=== PATIENT | male | born 1965 | race Caucasian/White ===

== ENCOUNTER 2016-09-08 10:14 | Emergency (ER) | payer SELFPAY ==
[2016-09-08 10:35] VITALS: BMI 25.1
[2016-09-08] MEDS ORDERED: ACETAMINOPHEN 325 MG/TAB TABLET PO ONE (10:36)
[2016-09-08 11:07] LABS: MPV 8.5 fL (7.4-10.4)
[2016-09-08 11:19] LABS: BLOOD UREA NITROGEN 11 MG/DL (9-20); CALCIUM 9.2 MG/DL (8.4-10.2); CALCULATED OSMOLALITY 252 MOs/Kg (270-290); CHLORIDE 92 mEq/L (98-107); GLUCOSE 142 MG/DL (70-99); SODIUM LEVEL 130 mEq/L (137-146); TOTAL PROTEIN 8.1 G/DL (6.3-8.2)
--- NOTE | 2016-09-08 11:22 | DIRPT ---
CLINICAL DATA: Cough, fever, congestion for 4 days EXAM: CHEST 2 VIEW COMPARISON: None. FINDINGS: There is consolidation in the right upper lobe compatible with pneumonia. Left lung is clear. Heart is normal size. No effusions or acute bony abnormality. IMPRESSION: Right upper lobe pneumonia. Followup PA and lateral chest X-ray is recommended in 3-4 weeks following trial of antibiotic therapy to ensure resolution and exclude underlying malignancy. Electronically Signed By: Zoltan Tony M.D. On: 09/08/2016 11:19
[2016-09-08 11:43] LABS: SEG NEUTROPHIL 81 % (45-76)
[2016-09-08] MEDS ORDERED: NS 2,000 ML IV ONE (11:47)
[2016-09-08] MEDS ORDERED: AZITHROMYCIN 500 MG in D5W 250 ML IV ONE (11:47)
[2016-09-08] MEDS ORDERED: CEFTRIAXONE 2 GM in D5W 100 ML IV ONE (11:47)
[2016-09-08 11:57] LABS: ALLEN'S TEST PASS; BEb 1.7 (+/- 2); TCO2 24.8 MMOL/L (23-27)
[2016-09-08 11:58] LABS: ABG Draw Site Left Radial
--- NOTE | 2016-09-08 12:00 | EDPRACDOC ---
- General Information Chief Complaint: Flu-Like Symptoms Stated Complaint: FLU LIKE SYMPTOMS Time Seen by Provider: 09/08/16 11:43 Mode Of Arrival: Car Home Medications: Home Medications Cephalexin Monohydrate [Keflex] 500 mg PO Q6H #28 tab 05/09/13 Hydrocodone Bit/Acetaminophen [Lortab 5-500 Tablet] 1 tab PO Q4-6H PRN #20 tab 05/09/13 No Home Medications 0 NA DIR 05/09/13 Cephalexin Monohydrate [Keflex] 500 mg PO Q6H #40 cap 01/23/15 Hydrocodone Bit/Acetaminophen [Hydrocodon-Acetaminophen 5-325] 1 tab PO Q6H PRN #14 tab 01/23/15 Azithromycin [Zithromax] 0 mg PO DAILY #6 tablet 09/08/16 Guaifenesin-Codeine [Robitussin AC] 10 ml PO Q6-8H 5 Days 09/08/16 Allergies/Adverse Reactions: Allergies Allergy/AdvReac Type Severity Reaction Status Date / Time No Known Allergies Allergy Verified 01/23/15 00:00 - History of Present Illness Symptoms Started: 5 DAYS Symptoms: Reports: Cough Recent Medications: Reports: None Relevant History Of: Reports: None Shortness of Breath: None Cough Frequency: Intermittent Cough Description: Reports: Productive Rhinorrhea: Reports: Brown, Green Associated Signs and Symptoms: Reports: Fever. Denies: Headache ED Past Medical History - History Reviewed Yes Nurses notes reviewed and agree except as marked - Social Medical History Smoking Status: Heavy tobacco smoker (5 or more cigarettes/day or daily pipe/ cigar) EDM Review of Systems - Review of Systems ROS Negative Except as Marked: Yes All systems reviewed and were negative except as marked - Physical Exam Constitutional: Alert (Awake), No apparent distress Oriented to: Time, Person, Place Last recorded Vital Signs: Last Vital Signs Temp 98.8 F 09/08/16 11:46 Pulse 116 09/08/16 10:33 Resp 26 H 09/08/16 10:33 BP 132/72 09/08/16 10:33 Pulse Ox 95 09/08/16 10:33 Oxygen Pulse Oxygen Saturation 95 O2 Device Room Air Oxygen Flow Rate Fraction of Inspired Oxygen ( FIO2) - HEENT Head: Normal ( normocephalic) Eye Exam: Normal (PERRL, EOMI, Sclera white) Oropharynx: Normal (Pharynx:Moist without exudate,Gums-no swelling) ENT EAC: Normal TMJ: Normal Nose: No Symptoms Reported (septum midline) Neck: Normal (FROM, trachea at midline) - Respiratory/Cardiovascular Respiratory: Normal - CTA (BBS clear to auscultation without adventitious sounds ) Cardiovascular: Tachycardia - GI Auscultation: Normal (NABS) Palpation: Normal (Soft,No rebound or guarding, non distended) Tenderness: Non tender Davsi's Sign: Negative - Musculoskeletal Back: Normal (Non-Tender) Extremities: Normal (Normal tone, Pulses 2+ No cyanosis or edema, FROM) - Integumentary Skin: Normal, Warm, Dry Lymphatics: Normal (no adenopathy) - Neurologic Memory Impaired: Normal Motor Function: Normal (Normal tone, Pulses 2+ No cyanosis or edema, FROM) Cranial Nerve: Normal (CN II-X11 intact sensation, strength 5/5) Cerebellar: Normal Mood Description: Normal Perception: Normal - Results 09/08/16 10:45 09/08/16 10:45 WBC 29.7 xk/uL (3.8-10.8) H 09/08/16 10:45 RBC 5.26 xM/uL (4.70-6.10) 09/08/16 10:45 Hgb 15.4 g/dL (14.0-18.0) 09/08/16 10:45 Hct 45.6 % (42-52) 09/08/16 10:45 MCV 87 fL (80-94) 09/08/16 10:45 MCH 29.3 pg (27-32) 09/08/16 10:45 MCHC 33.8 g/dl (33-36) 09/08/16 10:45 RDW 14.1 % (11.5-14.5) 09/08/16 10:45 Plt Count 253 xk/uL (130-400) 09/08/16 10:45 MPV 8.5 fL (7.4-10.4) 09/08/16 10:45 Neut % (Auto) Cancelled 09/08/16 10:45 Lymph % (Auto) Cancelled 09/08/16 10:45 [place] % (Auto) Cancelled 09/08/16 10:45 Eos % (Auto) Cancelled 09/08/16 10:45 Baso % (Auto) Cancelled 09/08/16 10:45 Absolute Neuts (auto) Cancelled 09/08/16 10:45 Absolute Lymphs (auto) Cancelled 09/08/16 10:45 Seg Neuts % (Manual) 81 % (45-76) H 09/08/16 10:45 Band Neutrophils % 12 % (0-5) H 09/08/16 10:45 Lymphocytes % (Manual) 3 % (17-44) L 09/08/16 10:45 Monocytes % (Manual) 4 % (0-10) 09/08/16 10:45 Absolute Neutrophils 27.62 xk/uL (1.7-8.2) H 09/08/16 10:45 Absolute Lymphocytes 0.89 xk/uL (0.65-4.75) 09/08/16 10:45 Vacuolated Neuts Few 09/08/16 10:45 Dohle Bodies Occ 09/08/16 10:45 Platelet Estimate Norm (NORMAL) Occ giant platelet (NORMAL) Large plts present (NORMAL) 09/08/16 10:45 Platelet Estimate Norm (NORMAL) Occ giant platelet (NORMAL) Large plts present (NORMAL) 09/08/16 10:45 Platelet Estimate Norm (NORMAL) Occ giant platelet (NORMAL) Large plts present (NORMAL) 09/08/16 10:45 RBC Morphology Norm 09/08/16 10:45 Puncture Site Left radial 09/08/16 11:52 pH 7.510 pH UNITS (7.35-7.45) H 09/08/16 11:52 pCO2 30.0 mmHg (35-45) L 09/08/16 11:52 pO2 81.0 mmHg (80-100) 09/08/16 11:52 HCO3 23.9 MMOL/L (22-26) 09/08/16 11:52 Total CO2 24.8 MMOL/L (23-27) 09/08/16 11:52 Base Excess 1.7 (+/- 2) 09/08/16 11:52 FiO2 % 21% 09/08/16 11:52 Specimen Drawn By Roude 09/08/16 11:52 Sodium 130 mEq/L (137-146) L 09/08/16 10:45 Potassium 3.6 mEq/L (3.5-5.1) 09/08/16 10:45 Chloride 92 mEq/L (98-107) L 09/08/16 10:45 Carbon Dioxide 26 mMOL/L (22-33) 09/08/16 10:45 Anion Gap 16 mEq/L (8-16) 09/08/16 10:45 BUN 11 MG/DL (9-20) 09/08/16 10:45 Creatinine 1.00 MG/DL (0.66-1.25) 09/08/16 10:45 Estimated GFR (MDRD) > 60 mL/min (>=60) 09/08/16 10:45 Glucose 142 MG/DL (70-99) H 09/08/16 10:45 Calculated Osmolality 252 MOs/Kg (270-290) L 09/08/16 10:45 Lactic Acid 2.4 mEq/L (0.7-2.1) H 09/08/16 10:45 Calcium 9.2 MG/DL (8.4-10.2) 09/08/16 10:45 Total Bilirubin 3.3 MG/DL (0.2-1.3) H 09/08/16 10:45 AST 44 IU/L (17-59) 09/08/16 10:45 ALT 33 IU/L (21-72) 09/08/16 10:45 Alkaline Phosphatase 167 IU/L (38-126) H 09/08/16 10:45 Total Protein 8.1 G/DL (6.3-8.2) 09/08/16 10:45 Albumin 4.1 G/DL (3.5-5.0) 09/08/16 10:45 Lab Results 09/08/16 09/08/16 09/08/16 11:52 10:45 10:45 WBC 29.7 H RBC 5.26 Hgb 15.4 Hct 45.6 MCV 87 MCH 29.3 MCHC 33.8 RDW 14.1 Plt Count 253 MPV 8.5 Neut % (Auto) Cancelled Lymph % (Auto) Cancelled [place] % (Auto) Cancelled Eos % (Auto) Cancelled Baso % (Auto) Cancelled Absolute Neuts (auto) Cancelled Absolute Lymphs (auto) Cancelled Seg Neuts % (Manual) 81 H Band Neutrophils % 12 H Lymphocytes % (Manual) 3 L Monocytes % (Manual) 4 Absolute Neutrophils 27.62 H Absolute Lymphocytes 0.89 Vacuolated Neuts Few Dohle Bodies Occ Platelet Estimate Large plts present RBC Morphology Norm Puncture Site Left radial pH 7.510 H pCO2 30.0 L pO2 81.0 HCO3 23.9 Total CO2 24.8 Base Excess 1.7 FiO2 % 21% Specimen Drawn By Roude Sodium Potassium Chloride Carbon Dioxide Anion Gap BUN Creatinine Estimated GFR (MDRD) Glucose Calculated Osmolality Lactic Acid 2.4 H Calcium Total Bilirubin AST ALT Alkaline Phosphatase Total Protein Albumin 09/08/16 10:45 WBC RBC Hgb Hct MCV MCH MCHC RDW Plt Count MPV Neut % (Auto) Lymph % (Auto) [place] % (Auto) Eos % (Auto) Baso % (Auto) Absolute Neuts (auto) Absolute Lymphs (auto) Seg Neuts % (Manual) Band Neutrophils % Lymphocytes % (Manual) Monocytes % (Manual) Absolute Neutrophils Absolute Lymphocytes Vacuolated Neuts Dohle Bodies Platelet Estimate RBC Morphology Puncture Site pH pCO2 pO2 HCO3 Total CO2 Base Excess FiO2 % Specimen Drawn By Sodium 130 L Potassium 3.6 Chloride 92 L Carbon Dioxide 26 Anion Gap 16 BUN 11 Creatinine 1.00 Estimated GFR (MDRD) > 60 Glucose 142 H Calculated Osmolality 252 L Lactic Acid Calcium 9.2 Total Bilirubin 3.3 H AST 44 ALT 33 Alkaline Phosphatase 167 H Total Protein 8.1 Albumin 4.1 - EKG EKG #1 [place]: Normal Rhythm: ST Block: None Hypertrophy: None ST: Normal Decision Time to Discharge: 13:30 - Departure Yes I personally saw and evaluated the patient. Disposition: Home Condition: Good Final Diagnosis: PNEUMONIA Instructions: Pneumonia (ED) Education/Counseling Given To: Patient, Family Member Education/Counseling Given Regarding: Diagnosis, Treatment, Prognosis Referrals: None,No Provider [Primary Care Provider] - One Week Jung Nixon MD [Staff Physician] - One Week Prescriptions: New Azithromycin [Zithromax] 0 mg PO DAILY #6 tablet Guaifenesin-Codeine [Robitussin AC] 10 ml PO Q6-8H 5 Days No Action No Home Medications 0 NA DIR Cephalexin Monohydrate [Keflex] 500 mg PO Q6H #28 tab Hydrocodone Bit/Acetaminophen [Lortab 5-500 Tablet] 1 tab PO Q4-6H PRN #20 tab PRN Reason: Pain Hydrocodone Bit/Acetaminophen [Hydrocodon-Acetaminophen 5-325] 1 tab PO Q6H PRN #14 tab PRN Reason: Pain Cephalexin Monohydrate [Keflex] 500 mg PO Q6H #40 cap
[2016-09-08 14:10] LABS: LEUKOCYTES/URINE NEG (NEGATIVE); NITRITE/URINE NEG (NEGATIVE); URINE OCCULT BLOOD 3+ (NEG/TRACE)
[2016-09-08 14:29] LABS: AMORPHOUS 1+
[2016-09-08 15:06] VITALS: BP 113/73; PULSE 81; TEMP 98.4
== END 2016-09-08 15:12 | disposition home or self-care (01) ==
LOC: ED 10:14
DX: J18.9 Pneumonia, unspecified organism (principal)
CPT/HCPCS: 36415; 36600; 71020; 80053; 81001; 82803; 83605; 85007; 85027; 87040; 87804; 96361; 96365; 96366; 99284; J0456; J0696; J3490; J7060; J7070